=== PATIENT | male | born 1980 | race Two or more races ===

== ENCOUNTER 2021-09-24 01:41 | Emergency (ER) | payer SELFPAY ==
[~2021-09-24] VITALS: Ht 165.1 cm; Wt 68.0 kg
[2021-09-24 01:50] VITALS: BP 153/98
[2021-09-24] MEDS ORDERED: LORazepam 2MG/ML-1ML VIAL IM ONE (02:45)
[2021-09-24 02:48] LABS: Basophils # (auto) 0.1 10 ^3/uL (0-0.2); Basophils % (auto) 0.9 % (0.0-2.0); Eosinophils # (auto) 0 10 ^3/uL (0-0.8); Eosinophils % (auto) 0.4 % (0.0-7.0); Hemoglobin 15.6 g/dL (13.5-17.5); Lymphocytes # (auto) 1.2 10 ^3/uL (0.4-5.4); Lymphocytes % (auto) 15.9 % (10.0-50.0); Mean Corpuscular Hemoglobin 27.3 pg (28.0-32.0); Mean Corpuscular Hgb Conc. 32.5 g/dL (32.0-36.0); Monocytes # (auto) 0.7 10 ^3/uL (0-1.3); Monocytes % (auto) 9.3 % (0.0-12.0); Neutrophils # (auto) 5.6 10 ^3/uL (1.6-8.6); Neutrophils % (auto) 73.5 % (37.0-80.0); Nucleated Red Blood Cells % 0.3 %; Red Blood Cells 5.72 10^6/uL (4.5-5.90); White Blood Cell 7.6 10^3/uL (4.4-10.8)
[2021-09-24 03:02] LABS: Alanine Aminotransferase 109 U/L (16-61); Albumin 4.5 g/dL (3.4-5.0); Anion Gap 10 (5-15); Aspartate Aminotransferase 25 U/L (15-37); BUN/Creatinine Ratio 15.4; Blood Alcohol < 3.0 mg/dL (0-5); Blood Urea Nitrogen 16 mg/dL (7-18); Calcium 9.6 mg/dL (8.5-10.1); Carbon Dioxide 25 mmol/L (21-32); Chloride 97 mmol/L (98-107); GFR African American 101 mL/min; GFR Non-African American 84 mL/min; Glucose 288 mg/dL (74-106); Potassium 3.5 mmol/L (3.5-5.1); Sodium 132 mmol/L (136-145)
[2021-09-24 03:04] LABS: Alkaline Phosphatase 114 U/L (45-117); Bilirubin, Total 1.5 mg/dL (0.2-1.0); Total Protein 8.8 g/dL (6.4-8.2)
[2021-09-24 03:07] LABS: Salicylate < 1.7 mg/dL (2.8-20.0)
[2021-09-24 03:08] LABS: Acetaminophen < 2.0 ug/mL (10-30)
== END 2021-09-24 04:48 | disposition left against medical advice (07) ==
LOC: EDBD 01:41 → ER 01:41
DX: F39 Unspecified mood [affective] disorder (principal); Z53.21 Procedure and treatment not carried out due to patient leaving prior to being seen by health care provider
CPT/HCPCS: 36415; 80053; 80320; 80329; 85025; J2060